=== PATIENT | male | born 1970 | race Caucasian/White ===

== ENCOUNTER 2018-02-20 10:11 | Day surgery (SDC) | payer OTHER ==
[2018-02-19 16:11] VITALS: BMI 27.1
[2018-02-20] MEDS ORDERED: PROPOFOL 40 ML ONE (12:16)
[2018-02-20 12:41] LABS: Anion Gap 13 mmol/L (10-20); BUN (Urea Nitrogen) 13 mg/dL (8.9-20.6); Calc. Creatinine Clearance 134 mL/min (70-130); Calcium 9.6 mg/dL (7.8-10.44); Carbon Dioxide 23 mmol/L (22-29); Chloride 106 mmol/L (98-107); Estimated GFR-MDRD Greater than 90; Glucose 84 mg/dL (70-105); Potassium 4.1 mmol/L (3.5-5.1); Sodium 138 mmol/L (136-145)
--- NOTE | 2018-02-20 14:56 | ECHO ---
TRANSESOPHAGEAL ECHOCARDIOGRAM: DATE OF PROCEDURE: 02/20/18 INDICATION: 47-year-old gentleman with aortic valvular heart disease. DESCRIPTION OF PROCEDURE: The patient was taken to the PACU. The patient was sedated by anesthesiology. A transesophageal probe was placed in the distal esophagus and stomach. Echocardiographic images were obtained. The transesophageal probe was removed. FINDINGS: 1. Normal left ventricular systolic function. 2. Left ventricle is not dilated. 3. Bicuspid aortic valve. 4. Moderate aortic regurgitation. 5. Mild tricuspid regurgitation. 6. The proximal aorta was not dilated. IMPRESSION: Bicuspid aortic valve with moderate aortic regurgitation.
[2018-02-20] MEDS ORDERED: PROPOFOL 200 MG/20 ML VIAL ONE (16:21)
== END 2018-02-20 15:22 | disposition home or self-care (01) ==
LOC: CCL 10:11
PROVIDERS: ATTEND Internal Medicine Cardiovascular Disease
DX: I08.2 Rheumatic disorders of both aortic and tricuspid valves (principal); E78.5 Hyperlipidemia, unspecified; Z88.5 Allergy status to narcotic agent; Z87.891 Personal history of nicotine dependence; Z82.49 Family history of ischemic heart disease and other diseases of the circulatory system
CPT/HCPCS: 80048; 93312; J2704

== ENCOUNTER 2022-12-25 07:27 | Outpatient (CLI) | payer OTHER ==
[2022-12-25] MEDS ORDERED: Iopamidol-370 76% 500 ML 1 ML ONE (09:34)
== END 2022-12-25 07:28 | disposition home or self-care (01) ==
LOC: CT 07:27
PROVIDERS: ATTEND Internal Medicine Cardiovascular Disease
DX: Q23.1 Congenital insufficiency of aortic valve (principal); I71.20 Thoracic aortic aneurysm, without rupture, unspecified
CPT/HCPCS: 71275; Q9967

== ENCOUNTER 2024-11-27 10:10 | Outpatient (CLI) | payer OTHER ==
[2024-11-27] MEDS ORDERED: Iopamidol 370 76% 100 ML VIAL ONE (15:29)
== END 2024-11-27 10:11 | disposition home or self-care (01) ==
LOC: CT 10:10
PROVIDERS: ATTEND Internal Medicine Cardiovascular Disease
DX: Q23.81 Bicuspid aortic valve (principal); I35.8 Other nonrheumatic aortic valve disorders; I77.810 Thoracic aortic ectasia
CPT/HCPCS: 71275; Q9967

== ENCOUNTER 2025-07-28 12:44 | Outpatient (CLI) | payer OTHER ==
[~2025-07-28 12:44] MED LIST: Iopamidol-370 76% 500 ML MDV (1 ML CHARGE) ONE
== END 2025-07-28 12:45 | disposition home or self-care (01) ==
LOC: CT 12:44
PROVIDERS: ATTEND Internal Medicine Cardiovascular Disease
DX: I35.0 Nonrheumatic aortic (valve) stenosis (principal); R91.1 Solitary pulmonary nodule; N28.1 Cyst of kidney, acquired; I77.810 Thoracic aortic ectasia
CPT/HCPCS: 71275; Q9967